=== PATIENT | female | born 1995 | race Caucasian/White ===

== ENCOUNTER 2022-12-30 17:52 | Emergency (ER) | payer BC, OTHER ==
[2022-12-30] MEDS ORDERED: Sodium Chloride 0.9% 2.5 ML Syringe FLUSH PRN (18:20)
[2022-12-30] MEDS ORDERED: Sodium Chloride 0.9% 10 ML Syringe FLUSH PRN (18:20)
[2022-12-30] MEDS ORDERED: Sodium Chloride 0.9% 1,000 ML IV ONE (18:20)
[2022-12-30] MEDS ORDERED: Ondansetron 4 MG/2 ML SDV IVPUSH ONE (18:21)
[2022-12-30] MEDS ORDERED: Ketorolac 30 MG/ML SDV IVPUSH ONE (18:21)
[2022-12-30 19:30] LABS: CARBON DIOXIDE,CO2 27.2 mmol/L (21.0-32.0)
== END 2022-12-30 20:33 | disposition home or self-care (01) ==
LOC: MW.ED 17:52
DX: K80.20 Calculus of gallbladder without cholecystitis without obstruction (principal)
CPT/HCPCS: 36415; 76705; 80053; 81001; 81025; 83690; 85025; 87086; 96361; 96374; 96375; 99284; J1885; J2405; J3490; J7030

== ENCOUNTER 2023-01-28 06:14 | Emergency (ER) | payer BC, OTHER ==
[2023-01-28] MEDS ORDERED: Sodium Chloride 0.9% 2.5 ML Syringe FLUSH PRN (06:30)
[2023-01-28] MEDS ORDERED: Sodium Chloride 0.9% 10 ML Syringe FLUSH PRN (06:30)
[2023-01-28] MEDS ORDERED: Ondansetron 4 MG/2 ML SDV IVPUSH ONE (06:31)
[2023-01-28] MEDS ORDERED: Morphine 4 MG/ML Syringe IVPUSH ONE (06:33)
[2023-01-28 06:49] LABS: CARBON DIOXIDE,CO2 27.6 mmol/L (21.0-32.0); POTASSIUM,K 3.8 mmol/L (3.5-5.1)
[2023-01-28] MEDS ORDERED: Ketorolac 30 MG/ML SDV IVPUSH ONE (06:50)
[2023-01-28] MEDS ORDERED: Iopamidol 755 MG/ML 500 ML Multipack Bottle IVPUSH ONE (06:52)
== END 2023-01-28 09:19 | disposition home or self-care (01) ==
LOC: MW.ED 06:14
DX: R10.11 Right upper quadrant pain (principal); Z86.16 Personal history of COVID-19
CPT/HCPCS: 36415; 74177; 80053; 81025; 83690; 85025; 96374; 96375; 99284; J1885; J2270; J2405; J3490; Q9967

== ENCOUNTER 2023-02-02 07:31 | Emergency (ER) | payer BC, OTHER | END 2023-02-02 09:21 | disposition home or self-care (01) | LOC: MW.ED 07:31 | DX: N30.00 Acute cystitis without hematuria (principal); Z86.16 Personal history of COVID-19 | CPT/HCPCS: 81001; 87086; 87088; 87186; 99283 ==

== ENCOUNTER 2023-03-18 07:55 | Day surgery (SDC) | payer BC ==
[~2023-03-18 07:55] MED LIST: Lactated Ringers 1,000 ML IV SCH; Scopolamine 1.5 MG Transdermal Patch TOP ONE; cefOXitin 2 GM in Sodium Chloride 0.9% 100 ML IV ONE
[2023-03-18] MEDS ORDERED: HYDROmorphone 1 MG/ML Syringe IVPUSH PRN (08:01)
[2023-03-18] MEDS ORDERED: Naloxone 0.4 MG/ML SDV IVPUSH PRN (08:01)
[2023-03-18] MEDS ORDERED: fentaNYL 50 MCG/ML SDV IVPUSH PRN (08:01)
[2023-03-18] MEDS ORDERED: Morphine 2 MG/ML SYRINGE IVPUSH PRN (08:01)
[2023-03-18] MEDS ORDERED: Albuterol 0.083% 2.5 MG/3 ML Neb Soln NEB PRN (08:01)
[2023-03-18] MEDS ORDERED: Metoclopramide 10 MG/2 ML SDV IVPUSH PRN (08:01)
[2023-03-18] MEDS ORDERED: Ondansetron 4 MG/2 ML SDV IVPUSH PRN (08:01)
[2023-03-18] MEDS ORDERED: droPERidol 5 MG/2 ML SDV IVPUSH PRN (08:01)
[2023-03-18] MEDS ORDERED: Bupivacaine 25%/EPINEPHrine/PF 30 ML ONE (09:19)
[2023-03-18] MEDS ORDERED: Ropivacaine 0.5% 5 MG/ML 30 ML SDV ONE (09:19)
[2023-03-18] MEDS ORDERED: Ketorolac 30 MG/ML SDV ONE (09:21)
[2023-03-18] MEDS ORDERED: Dexamethasone 4 MG/ML 5 ML MDV ONE (09:21)
[2023-03-18] MEDS ORDERED: Ondansetron 4 MG/2 ML SDV ONE (09:21)
[2023-03-18] MEDS ORDERED: fentaNYL 100 MCG/2 ML SDV ONE ×2 (09:21→10:23)
[2023-03-18] MEDS ORDERED: Propofol 200 MG/20 ML SDV ONE (09:21)
[2023-03-18] MEDS ORDERED: Lidocaine 2% 5 ML SDV ONE (09:21)
[2023-03-18] MEDS ORDERED: Sugammadex Sodium 200 MG/2 ML VIAL ONE (09:21)
[2023-03-18] MEDS ORDERED: Rocuronium Bromide 50 MG/5 ML Syringe ONE ×2 (09:21→10:46)
[2023-03-18] MEDS ORDERED: Bupivacaine 0.5% 30 ML SDV ONE (09:37)
[2023-03-18] MEDS ORDERED: cefOXitin 1 GM Vial ONE (10:11)
[2023-03-18] MEDS ORDERED: Indocyanine Green 25 MG SDV ONE (10:11)
[2023-03-18] MEDS ORDERED: Morphine 4 MG/ML Syringe IVPUSH PRN (11:28)
[2023-03-18] MEDS ORDERED: Acetaminophen/HYDROcodone 325-5 MG Tab PO PRN (11:28)
[2023-03-18] MEDS ORDERED: Lactated Ringers 1,000 ML IV SCH (11:30)
== END 2023-03-18 13:10 | disposition home or self-care (01) ==
LOC: MW.SDS 07:55
PROVIDERS: ATTEND Surgery
DX: K80.10 Calculus of gallbladder with chronic cholecystitis without obstruction (principal); Z87.891 Personal history of nicotine dependence; Z79.891 Long term (current) use of opiate analgesic; E66.9 Obesity, unspecified; Z68.36 Body mass index [BMI] 36.0-36.9, adult; Z90.3 Acquired absence of stomach [part of]
CPT/HCPCS: 47562; 81025; J0131; J0694; J1100; J1170; J1885; J2405; J2704; J2795; J3010; J3490; J7030; J7120; 00790; 64488

== ENCOUNTER 2024-05-24 04:57 | Emergency (ER) | payer BC ==
[2024-05-24 05:21] LABS: APPEARANCE,URINE SLT CLOUDY; BILIRUBIN,URINE NEGATIVE (NEGATIVE); COLOR,URINE YELLOW; GLUCOSE,URINE NEGATIVE (NEGATIVE); KETONES,URINE NEGATIVE (NEGATIVE); LEUKOCYTE ESTERASE,URINE TRACE (NEGATIVE); NITRITE,URINE NEGATIVE (NEGATIVE); OCCULT BLOOD,URINE MODERATE (NEGATIVE); PROTEIN,URINE 30 mg/dL (NEGATIVE); UROBILINOGEN,URINE 0.2 EU/dL (<2.0)
[2024-05-24 05:30] LABS: AMORPHOUS SEDIMENT,URINE MODERATE (NEGATIVE); BACTERIA,URINE 1+ (NEGATIVE); EPITHELIAL CELLS,URINE FEW (NONE-FEW)
[2024-05-24] MEDS: Cefdinir 300 MG Cap PO ONE (05:52)
== END 2024-05-24 05:55 | disposition home or self-care (01) ==
LOC: MW.ED 04:57
DX: N39.0 Urinary tract infection, site not specified (principal); Z33.1 Pregnant state, incidental; Z86.16 Personal history of COVID-19
CPT/HCPCS: 81001; 99283; A9270

== ENCOUNTER 2024-12-18 12:45 | Inpatient (IN) | payer BC ==
[2024-12-18] MEDS ORDERED: Phenylephrine HCl In 0.9% NaCl 1 MG/10 ML Syringe IVPUSH PRN (13:34)
[2024-12-18] MEDS ORDERED: ePHEDrine 50 MG/ML SDV IVPUSH PRN (13:34)
[2024-12-18] MEDS ORDERED: dexmedeTOMIDine HCl 200 MCG/2 ML SDV EPIDUR SCH (13:45)
[2024-12-18] MEDS ORDERED: Carboprost Tromethamine 250 MCG/1 mL Vial IM PRN (16:07)
[2024-12-18] MEDS ORDERED: Sodium Chloride 0.9% 20 ML SDV IV PRN (16:07)
[2024-12-18] MEDS ORDERED: Ondansetron 4 MG/2 ML SDV IVPUSH PRN (16:07)
[2024-12-18] MEDS ORDERED: Misoprostol 200 MCG Tab PO PRN (16:07)
[2024-12-18] MEDS ORDERED: Water For Irrigation,Sterile 1,000 ML Container IRR PRN (16:07)
[2024-12-18] MEDS ORDERED: Methylergonovine 0.2 MG/1 ML Amp IM PRN (16:07)
[2024-12-18] MEDS ORDERED: Tranexamic Acid in NACL,ISO-OS 1,000 MG in Premix Bag 1 BAG IV PRN (16:07)
[2024-12-18] MEDS ORDERED: Sodium Chloride 0.9% 10 ML Syringe FLUSH PRN (16:07)
[2024-12-18] MEDS ORDERED: Butorphanol 2 MG/ML SDV IVPUSH PRN (16:07)
[2024-12-18] MEDS ORDERED: Lidocaine 1% 50 ML MDV INJECT PRN (16:07)
[2024-12-18] MEDS ORDERED: Sodium Chloride 0.9% 2.5 ML Syringe FLUSH PRN (16:07)
[2024-12-18] MEDS ORDERED: Oxytocin/0.9 % Sodium Chloride 30 UNIT/500 ML BAG IV SCH (16:15)
[2024-12-18 16:34] LABS: HEMATOCRIT 34.7 % (37.0-47.0); HEMOGLOBIN 11.4 g/dL (12.0-16.0); MEAN CORPUSCULAR HEMOGLOBIN 27.7 pg (28.0-32.0); MEAN CORPUSCULAR HGB CONC 32.9 g/dL (32.0-36.0); MEAN CORPUSCULAR VOLUME 84.2 fL (83.0-99.0); MEAN PLATELET VOLUME 11.9 fL (9.4-12.3); PLATELET COUNT,PLT 358 K/uL (150-400); RED BLOOD CELL COUNT 4.12 M/uL (4.10-5.30); WHITE BLOOD CELL COUNT,WBC 12.57 K/uL (3.9-11.3)
[2024-12-18] MEDS: Lactated Ringers 1,000 ML IV SCH (19:50)
[2024-12-18] MEDS ORDERED: Docusate Sodium 100 MG Cap PO PRN (20:12)
[2024-12-18] MEDS ORDERED: Simethicone 80 MG Tab.Chew PO PRN (20:12)
[2024-12-18] MEDS ORDERED: diphenhydrAMINE 50 MG Cap PO PRN (20:12)
[2024-12-18] MEDS: Ropivacaine HCl/PF 400 MG in Premix Bag 1 BAG EPIDUR SCH (20:40)
[2024-12-18] MEDS: Oxytocin/0.9 % Sodium Chloride 30 UNIT/500 ML BAG IV SCH (21:12)
[2024-12-19] MEDS: Witch Hazel Medicated Pads 40/Jar TOP PRN (05:56)
[2024-12-19] MEDS: Benzocaine/Menthol 20%-0.5% Spray 78 GM Cannister TOP PRN (05:56)
[2024-12-19] MEDS: Lanolin 100% Cream 7 GM Tube TOP PRN (05:57)
[2024-12-19 06:07] LABS: PH,UMBILICAL ARTERIAL 7.321 (7.18-7.38); PH,UMBILICAL VENOUS 7.367 (7.25-7.45)
[2024-12-19] MEDS: Acetaminophen 500 MG Tab PO PRN (06:13)
[2024-12-19 07:05] LABS: HEMATOCRIT 34.6 % (37.0-47.0); HEMOGLOBIN 11.6 g/dL (12.0-16.0); MEAN CORPUSCULAR HEMOGLOBIN 27.8 pg (28.0-32.0); MEAN CORPUSCULAR HGB CONC 33.5 g/dL (32.0-36.0); MEAN PLATELET VOLUME 11.5 fL (9.4-12.3); PLATELET COUNT,PLT 337 K/uL (150-400); RED BLOOD CELL COUNT 4.17 M/uL (4.10-5.30); WHITE BLOOD CELL COUNT,WBC 21.91 K/uL (3.9-11.3)
[2024-12-19] MEDS: Ibuprofen 800 MG Tab PO PRN (09:37)
== END 2024-12-19 15:15 | disposition home or self-care (01) | DRG 560 ==
LOC: MW.OB 12:45 → MW.OBCHECK 12:45 → MW.OB 16:07 → OBSVTOIN 12-19 04:04 → MW.OB 12-19 08:11
PROVIDERS: ADMIT Obstetrics & Gynecology Obstetrics; ATTEND Obstetrics & Gynecology Obstetrics
PROC: 10E0XZZ Delivery of Products of Conception, External Approach (ICD-10-PCS; principal; 2024-12-19)
PROC: 10907ZC Drainage of Amniotic Fluid, Therapeutic from Products of Conception, Via Natural or Artificial Opening (ICD-10-PCS; 2024-12-19)
PROC: 0KQM0ZZ Repair Perineum Muscle, Open Approach (ICD-10-PCS; 2024-12-19)
PROC: 3E0R3BZ Introduction of Anesthetic Agent into Spinal Canal, Percutaneous Approach (ICD-10-PCS; 2024-12-19)
PROC: 00HU33Z Insertion of Infusion Device into Spinal Canal, Percutaneous Approach (ICD-10-PCS; 2024-12-19)
DX: O48.0 Post-term pregnancy (principal); Z37.0 Single live birth; O42.02 Full-term premature rupture of membranes, onset of labor within 24 hours of rupture; O70.1 Second degree perineal laceration during delivery; O99.02 Anemia complicating childbirth; Z3A.40 40 weeks gestation of pregnancy; Z86.16 Personal history of COVID-19; Z90.89 Acquired absence of other organs; Z98.84 Bariatric surgery status; Z87.81 Personal history of (healed) traumatic fracture; Z98.1 Arthrodesis status
CPT/HCPCS: 36415; 51702; 59025; 59409; 82803; 84112; 85027; 86592; 86850; 86900; 86901; A9270-GY; J2590; J2795; J7120

== ENCOUNTER 2025-10-10 07:01 | Emergency (ER) | payer BC ==
[2025-10-10 08:05] LABS: APPEARANCE,URINE CLOUDY; GLUCOSE,URINE 500 mg/dL (NEGATIVE); OCCULT BLOOD,URINE TRACE-INTACT (NEGATIVE)
[2025-10-10 08:09] LABS: SQUAMOUS EPITHELIAL CELLS,UR MODERATE
== END 2025-10-10 08:28 | disposition home or self-care (01) ==
LOC: MW.ED 07:01
DX: N39.0 Urinary tract infection, site not specified (principal); Z79.899 Other long term (current) drug therapy
CPT/HCPCS: 81001; 81025; 87086; 99283; A9270